=== PATIENT | female | born 1995 | race Caucasian/White ===

== ENCOUNTER 2017-04-27 06:00 | Inpatient (IN) ==
[2017-04-27] MEDS ORDERED: ACETAMINOPHEN 500 MG TABLET PO PRN (06:22)
[2017-04-27] MEDS ORDERED: CALCIUM CARBONATE Chewable 500mg TABLET PO PRN ×2 (06:22→17:17)
[2017-04-27] MEDS ORDERED: LIDOCAINE 1% (10mg/ml) 2mL INJ PF SDV ID PRN (06:22)
[2017-04-27] MEDS ORDERED: OXYTOCIN DRIP 30 UNIT/500 ML ML IV PRN (06:22)
[2017-04-27] MEDS ORDERED: CARBOPROST 250 MCG/ML INJECTION IM PRN (06:22)
[2017-04-27] MEDS ORDERED: D5LR 1,000 ML IV PRN (06:22)
[2017-04-27] MEDS ORDERED: METHYLERGONOVINE 0.2 MG/ML INJECTION IM PRN (06:22)
[2017-04-27] MEDS ORDERED: MAG-AL + SIM ORAL LIQUID 30ml PO PRN ×2 (06:22→17:17)
[2017-04-27 06:47] VITALS: BMI 24.1
[2017-04-27] MEDS: LR 1,000 ML IV PRN ×3 (07:03→11:56)
--- NOTE | 2017-04-27 10:20 | Anesthesia Preoperative Report ---
Anesthesia Epidural/Spinal Rec - Date and Time Date: 04/27/17 Preoperative Diagnosis: 39 wk Procedure: Labor Epidural Plan: Epidural - Vital Signs Vital Signs: Temperature 98.1 F 04/27/17 06:54 Pulse Rate 97 04/27/17 06:54 Respiratory Rate 16 04/27/17 06:54 Blood Pressure 142/77 H 04/27/17 06:54 Pulse Oximetry 99 04/27/17 06:54 /Para: P:0 - Medictaions & Allergies Inpatient Medications: Current Medications Acetaminophen (Tylenol) 500 - 1,000 mg PO Q4H PRN PRN Reason: Pain Al Hydroxide/Mg Hydroxide (Maalox Plus) 30 ml PO Q3H PRN PRN Reason: Indigestion Calcium Carbonate (Tums) 500 - 1,000 mg PO Q2H PRN PRN Reason: Indigestion Carboprost Tromethamine (Hemabate) 250 mcg IM O PRN PRN Reason: .Downtime Dextrose/Lactated Ringer's (Dextrose 5%-Lactated Ringers) 1,000 mls @ 125 mls/ hr IV .Q8H PRN PRN Reason: Labor Last Admin: 04/27/17 07:03 Dose: 125 mls/hr Oxytocin (Pitocin Drip) 30 unit in 500 mls @ 2 mls/hr IV .Q24H PRN; Protocol PRN Reason: Induction/Augmentation Last Admin: 04/27/17 07:00 Dose: 2 mls/hr Lactated Ringer's (Lactated Ringers) 1,000 mls @ 999 mls/hr IV .Q1H1M PRN Last Admin: 04/27/17 09:18 Dose: 999 mls/hr Lidocaine HCl (Xylocaine-Mpf 1% Vial) 0.2 mg ID O PRN PRN Reason: IV Start Methylergonovine Maleate (Methergine) 0.2 mg IM O PRN Misoprostol (Cytotec) 800 mcg ND ONCE PRN Allergies/Adverse Reactions: Allergies Allergy/AdvReac Type Severity Reaction Status Date / Time No Known Allergies Allergy Verified 04/27/17 07:16 - Home Medications Home Medications: Home Medications Medication Instructions Recorded Confirmed Type Vitamins 04/10/17 History Tums 04/10/17 History - Medical History Neuro/Musculoskeletal: Reports: Back Problems (possible bulging dis), Depression , Headaches Other History: Reports: Now - Surgical History HEENT Surgeries: Reports: Oral Surgery ([place] teeth) Reproductive Surgery/Treatment: DENIES: Section Anesthesia Reactions: None Hx Family Anesthesia Reaction: No History of Motion Sickness: No - Social History Smoking Status: Former smoker Second Hand Exposure: No Substance Use Type: does not use Alcohol Intake Frequency: does not drink - Pertinent Findings Lab Data: CBC and BMP 04/27/17 06:41 EKG Rhythm: Normal Sinus Rhythm - Physical Exam Respiratory Exam: lungs clear Cardiovascular Exam: regular rate and rhythm, no murmur - Airway Assessment Mallampati Score: II TMD: 3 Fingerbreadths Neck Extension: good Overall Assessment: no airway concerns - ASA ASA Score: 2 - Discussion Discussion: Discussed risks/options/alternatives of anesthesia and questions answered. Patient consents. Nursing pain assessment noted. Anesthesia Discussion: spouse Attestation Statement: Prior to the delivery of any anesthetic medication, I examined the patient, developed the plan, obtained the patient's consent and discussed the risk and benefits of the procedure with the patient/guardian.
[2017-04-27] MEDS ORDERED: ROPIVACAINE 1% 10MG/ML INJ 200 MG, SUFentanil 50 MCG in NS 100 ML EPI PRN (12:15)
[2017-04-27] MEDS ORDERED: ONDANSETRON 4 MG/2 ML INJECTION IVP PRN (12:15)
[2017-04-27] MEDS ORDERED: NALOXONE 0.4 MG/ML INJECTION IVP PRN (12:15)
[2017-04-27] MEDS ORDERED: DiphenhydrAMINE 50 MG/ML INJECTION IVP PRN (12:15)
[2017-04-27] MEDS ORDERED: HYDROCODONE/APAP 5mg/325mg TABLET PO PRN (17:17)
[2017-04-27] MEDS ORDERED: DiphenhydrAMINE 25 MG CAPSULE PO PRN (17:17)
[2017-04-27] MEDS ORDERED: HYDROCORTISONE 2.5% CREAM 30gm RECTALLY PRN (17:17)
[2017-04-27] MEDS ORDERED: OXYTOCIN DRIP 30 UNIT/500 ML ML IV SCH (17:17)
--- NOTE | 2017-04-27 17:29 | Anesthesia Postoperative Note ---
- Date and Time Date: 04/27/17 Time: 17:29 - Status Patient Participated in Evaluation: Patient Participated in Person Vital Signs: Temperature 98.1 F 04/27/17 06:54 Pulse Rate 97 04/27/17 06:54 Respiratory Rate 16 04/27/17 06:54 Blood Pressure 142/77 H 04/27/17 06:54 Pulse Oximetry 99 04/27/17 06:54 Respiratory Function: Airway Patent Cardiovascular Function: Regular Pulse EKG: Sinus Rhythm Mental Status: Alert and Oriented Pain Intensity: 0 Hydration: Taking PO Fluids Complications During Recover: None Apparent - Follow-Up Instructions Instructions: Per Surgeon
--- NOTE | 2017-04-27 18:46 | Labor and Delivery Note ---
DATE OF DELIVERY: 04/27/2017 DIAGNOSES 1. 21-year-old white female G1, P0 at 39.3 weeks gestational age. 2. Pitocin induction for logistics. 3. Artificial rupture of membranes. 4. Epidural anesthesia. 5. Spontaneous vaginal delivery. 6. Female , 9/9 Apgars, 3103 g (6 pounds 13.4 ounces) (Candelaria Dumont) . 7. First-degree perineal laceration x 2 - repaired. DESCRIPTION This is a patient of Dr. Lord who was brought in this morning for a Pitocin induction for logistics/social situation reasons. Dr. Lord had this morning off so I started and ran the induction for her until she arrived. Cervix was initially closed. Pitocin reached a maximum of 20 milliunits/minute. At that point in time I tried to put in a Chavez bulb but was unsuccessful so I did an AROM with a hook. Clear fluid was noted. Shortly thereafter the patient desired an epidural block so that was placed. Dr. Lord arrived and took over management late in the morning. Then, around 2:45 p.m. the patient was complete and +2 and having an urge to push and Dr. Lord was tied up in another delivery at that time so as the on-call doctor I was asked to come and be present. Pitocin was turned down to 10 and then later off. We pushed for a while and had some late decelerations so I had forceps open but never used them. We went to pushing every other or every third contraction to allow baby time to recover between pushes and were able to achieve a spontaneous vaginal delivery from the OA position. was bulb suctioned after delivery of the head and then again after delivery of the body. Cord was doubly clamped and cut after draining for two minutes and the infant' s father cut the cord. Infant was initially placed on the mother's abdomen. The placenta delivered spontaneously and was intact. There were two first- degree perineal lacerations at the 5 o'clock and 7 o'clock positions and they were repaired with 3-0 chromic. EBL was 250. Maternal blood type is A+, GBS was negative and rubella was immune. At time of dictation mother and infant are doing well. [facility]
[2017-04-27] MEDS: IBUPROFEN 800 MG TABLET PO SCH (23:01)
[2017-04-28] MEDS: IBUPROFEN 800 MG TABLET PO SCH ×4 (01:33→21:22)
[2017-04-28] MEDS: ACETAMINOPHEN 500 MG TABLET PO PRN ×2 (04:40→13:35)
[2017-04-28] MEDS ORDERED: PRENATAL VITAMIN TABLET PO SCH (09:00)
[2017-04-28] MEDS ORDERED: DOCUSATE CALCIUM 240 MG CAPSULE PO SCH (09:00)
--- NOTE | 2017-04-28 09:22 | OB/GYN Progress Note ---
OB-PP Progress Note - General PPD1 Maternal Group B Strep: Negative Maternal blood type: A+ Maternal Rubella Status: Immune - Subjective Date: 04/28/17 Lochia: Minimal Pain: controlled Voiding: voiding Nausea or Vomiting Present: No - Objective Vital Signs: Last Vital Signs Temp 97.6 F 04/28/17 06:15 Pulse 83 04/28/17 06:15 Resp 16 04/28/17 06:15 BP 125/60 04/28/17 06:15 Pulse Ox 98 04/28/17 06:15 General: alert and oriented Abdomen: fundus firm, non-tender Extremities: non-tender Edema: none - Assessment Assessment: SP, - Plan Plan: routine care Expected date of discharge: 04/29/17
[2017-04-29] MEDS: ACETAMINOPHEN 500 MG TABLET PO PRN (02:23)
[2017-04-29] MEDS: IBUPROFEN 800 MG TABLET PO SCH (07:32)
--- NOTE | 2017-04-29 10:43 | OB/GYN Progress Note ---
OB-PP Progress Note - General PPD2 Maternal Group B Strep: Negative Maternal blood type: A+ Maternal Rubella Status: Immune - Subjective Date: 04/29/17 Lochia: Minimal Pain: controlled Voiding: voiding Nausea or Vomiting Present: No - Objective Vital Signs: Last Vital Signs Temp 97.8 F 04/29/17 03:40 Pulse 112 H 04/29/17 03:40 Resp 16 04/29/17 03:40 BP 124/58 04/29/17 03:40 Pulse Ox 97 04/29/17 03:40 General: alert and oriented Cardiovascular: regular rate,rhythm Respiratory: non-labored Abdomen: fundus firm, non-tender Extremities: non-tender - Assessment Assessment: SP, - Plan Plan: routine care, discharge home
[2017-04-29 12:40] VITALS: BP 118/68; PULSE 81; RESP 18; TEMP 98.3; O2SAT 99
== END 2017-04-29 13:31 | disposition home or self-care (01) | DRG 775 ==
LOC: MC 06:20
PROVIDERS: ADMIT Obstetrics & Gynecology; ATTEND Obstetrics & Gynecology